=== PATIENT | female | born 1960 | race Caucasian/White ===

== ENCOUNTER → 2017-06-02 15:55 | Outpatient (CLI) | payer OTHER ==
[2013-05-07 08:07] VITALS: BMI 39.4
[~2017-06-02 15:55] MED LIST: ALEVE220 MG PO; ASPIRIN325 MG PO; LINZESS PO; MELATONIN 3 MG1 TAB PO; NEXIUM40 MG PO; PERCOCET 10/3251 TA1 PO
== END | disposition home or self-care (01) ==
LOC: D.MAMMO 13:30
DX: Z12.31 Encounter for screening mammogram for malignant neoplasm of breast (principal)